=== PATIENT | female | born 1965 | race Caucasian/White ===

== ENCOUNTER 2016-10-25 07:06 | Day surgery (SDC) | payer BC ==
--- NOTE | 2016-10-22 10:51 | HP ---
Admitting History and Physical - Primary Care Physician PCP: Damon Hopper - Admission Chief Complaint: Left breast mass and atypia History of Present Illness: 51 year old perimenapausal female with string family H/O breast cancer.She has noticed some breast pain. Screening mammogram and US showed new left breast mass .7 cm birad 4. Breast MRI 10/01/2016 showed left breast mass .6 cm at 12: 00. birad 4. Targeted US and left diagnostic mammogram 10/01/2016 showed no detectable mass left breast 12:00 and advised biopsy of left breast mass under MRI. Left breast 11:00 .5 cm likely complicated cyst advised 6 month follow. MRI core bx 10/03/2016 showed radial scar with papillary lesion and atypia. History Source: Patient Limitations to Obtaining History: No Limitations - Past Medical History Gastrointestinal: Yes: GERD Psych: Yes: Anxiety Endocrine: Yes: Other (thyroid nodule) Additional Past Medical History: left ovarian cyst/urethral polyp followed by urogyn - Past Surgical History Past Surgical History: Yes: , Hysterectomy Additional Past Surgical History: uterine embolization 2011 Left breast bx fibroadenoma 2006 Home Medications - Allergies Allergies/Adverse Reactions: Allergies Allergy/AdvReac Type Severity Reaction Status Date / Time erythromycin base Allergy Verified 10/22/16 10:54 escitalopram oxalate Allergy Verified 10/22/16 10:54 [From Lexapro] - Home Medications Home Medications (free text): ativan, synthroid steroid cream Family Disease History - Family Disease History Family Disease History: CA: Father (prostate and bladder ca 70/90), Brother ( thyroid ca 30's), Sister (breast ca at 40 and recurrence x2 in her 50's BRCA neg ) Physical Examination Constitutional: Yes: Well Nourished Breast(s): Yes: Other (moderately B sized cups. on palpation she has bilateral nodularity and a smoothly marginated density consistent with a cyst she has no adenopathy. post op bx changes left breast 12:00) Problem List - Problems (1) Atypical hyperplasia of left breast Assessment/Plan Left breast wide excision with mammogram needle localization
[2016-10-23 11:45] VITALS: BMI 18.5
[2016-10-25] MEDS ORDERED: KETOROLAC TROMETHAMINE 30 MG/1 ML VIAL IVPUSH PRN (10:06)
[2016-10-25] MEDS ORDERED: ONDANSETRON 4 MG/2 ML VIAL IVPB PRN (10:06)
[2016-10-25] MEDS ORDERED: DEXTROSE 5%-0.45% SALINE 1,000 ML IV SCH (10:15)
[2016-10-25] MEDS ORDERED: PROPOFOL 20 ML ONE ×2 (10:57)
[2016-10-25] MEDS ORDERED: MIDAZOLAM HCL 2 MG/2 ML SINGLE DOSE VIAL ONE (10:57)
[2016-10-25] MEDS ORDERED: LIDOCAINE 1%-EPI 1:100,000 30 ML MDV IJ ONE (11:00)
[2016-10-25] MEDS ORDERED: GUM MASTIC/STORAX/MSAL/ALCOHOL 1 DRP DROPSBTL MC ONE (11:00)
[2016-10-25] MEDS ORDERED: LIDOCAINE HCL 1%, 10 MG/ML (20ML VIAL) ONE (11:00)
[2016-10-25] MEDS ORDERED: PROMETHAZINE HCL 25 MG/1 ML VIAL IVPUSH PRN (12:25)
[2016-10-25] MEDS ORDERED: oxyCODONE HCL 5 MG TABLET PO PRN ×2 (12:25)
[2016-10-25] MEDS ORDERED: LACTATED RINGERS SOLUTION 1,000 ML IV SCH (12:30)
[2016-10-25 12:51] VITALS: TEMP 98.1
[2016-10-25 14:29] VITALS: BP 101/58; PULSE 74
--- NOTE | 2016-10-25 20:55 | OP ---
DATE OF OPERATION: DATE OF DICTATION: 10/25/2016 PREOPERATIVE DIAGNOSIS: Left breast papilloma with atypia. POSTOPERATIVE DIAGNOSIS: Left breast papilloma with atypia. Await permanent section. PROCEDURE: Left breast wide excision with mammographic needle localization. ANESTHESIA: General laryngeal mask airway anesthesia. PRIMARY SURGEON: Kathy Hopper MD BUSINESS SALES CONSULTANT: RAGHU Cunningham COMPLICATIONS: There were no complications. Briefly, the patient is a 51-year-old, G2, P1, perimenopausal white female of Citizen [place] descent. Her sister had breast cancer at age 40 and she has had a couple recurrences. She has a maternal aunt who had breast cancer in her 50s. There is also thyroid and prostate cancer in the family. The patient has a history of a hysterectomy in 2015 but kept her ovaries. She had a recent mammography and ultrasound showing a left breast 2 o'clock density which was highly suspicious and underwent and ultrasound-guided biopsy which showed benign cystic changes and fibrosis. An MRI had shown another area of suspicion in the left breast 12 o'clock region and she underwent an MRI-guided core biopsy of that on October 03, 2016, showing a papillary lesion with atypia. Wide excision of this region was recommended. She was brought in for the procedure through ambulatory surgery on October 25, 2016. She underwent a needle localization of the clip at the 12 o'clock region of the left breast and was brought to the holding area. In the holding area, site verification was made and informed consent was obtained. She was brought in to the operating room and laid on the OR table in the supine position. Venodynes were placed on the lower extremities. She did not receive and antibiotics, given the small nature of the excision. She was given general laryngeal mask airway anesthesia. A periareolar incision was made around the left nipple-areolar complex and dissection was undertaken around the wire, with the breast tissue completely removed from around the wire all the way down to the pectoralis major muscle. Hemostasis was achieved and the specimen was oriented with a long lateral and short superior suture and specimen radiograph showed removal of the clip in question. The breast parenchyma was then reapproximated using 2-0 plain suture and the skin was closed using interrupted 3-0 deep dermal Vicryl suture and a running 4-0 subcuticular Biosyn suture. Mastisol and Steri-Strips were applied over the wound with a compressive dressing placed over this. The patient tolerated the procedure well without difficulty and the laryngeal mask airway tube was removed at the end of the case. The patient will be recovered postoperatively in the recovery room and discharged home the same day once discharge criteria are met. She is to follow up in the office in 1 week for formal wound pathology check. All sponge and needle counts were correct at the end of the case and estimated blood loss was minimal. KATHY HOPPER M.D. [id number]
--- NOTE | 2016-10-30 15:38 | PATH ---
Surgical Pathology Report Patient Name: TRINI EDDY [facility]. Rec. #: [id number] /Age/Gender: 1965 (Age: 51) / F Account: [id number] Location: [facility] Taken: 10/25/2016 Received: 10/25/2016 Reported: 10/30/2016 Physicians: Damon Hopper M.D. Specimen(s) Received LEFT BREAST WIDE EXCISION Clinical History Radial scar with atypical ductal hyperplasia on initial core biopsy Final Diagnosis BREAST, LEFT, WIDE EXCISION: FOCAL ATYPICAL DUCTAL HYPERPLASIA (ADH) PRESENT IN A BACKGROUND OF USUAL DUCTAL HYPERPLASIA (UDH) AND FIBROADENOMATOID CHANGE. NO RESIDUAL RADIAL SCAR/PAPILLARY LESION IS IDENTIFIED. PRIOR BIOPSY SITE CHANGES ARE PRESENT. Electronically Signed Siri Payne M.D. Gross Description Received in formalin, labeled "left breast wide excision," is a 3.2 x 2.6 x 1.3 cm. sandoval-yellow, irregular, portion of fibroadipose tissue with a needle localization wire present. There is a short suture marking the superior aspect and a long suture marking the lateral aspect, per the surgeon. There is no skin present. The specimen is inked as follows: superior and lateral blue; inferior green; medial yellow; anterior red; deep black. The specimen is serially sectioned from medial to lateral. Sectioning reveals central hemorrhage surrounded by fat necrosis and focally firm fibrous tissue. No definitive masses are identified. The specimen is entirely and sequentially submitted in 9 cassettes with the medial margin in cassette 1 and the lateral margin in cassette 9. Time to formalin fixation: 10 minutes Total formalin fixation time: Approximately 30 hours. [facility]
== END 2016-10-25 14:20 | disposition home or self-care (01) ==
LOC: FASU 07:06 → EDBD 10:00 → FASU 14:20
PROVIDERS: ATTEND Surgery Surgical Oncology
PROC: 0HBU0ZZ Excision of Left Breast, Open Approach (ICD-10-PCS; principal; 2016-10-25 11:40)
DX: D24.2 Benign neoplasm of left breast (principal); N60.92 Unspecified benign mammary dysplasia of left breast; N60.82 Other benign mammary dysplasias of left breast
CPT/HCPCS: 19281; 88307-TC